=== PATIENT | female | born 1995 | race Caucasian/White ===

== ENCOUNTER 2019-01-19 18:36 | Emergency (ER) | payer OTHER, MEDICAID ==
[~2019-01-19] VITALS: Ht 167.6 cm; Wt 99.8 kg
[~2019-01-19 18:36] MED LIST: ALBUTEROL SULF8.5 GM IH; AZITHROMYCIN 2250 MG PO; BACTROBAN22 GM TP; CLARITHROMYCIN250 M2 PO; FLEXERIL; FLEXERIL PO; HYDROCODONE-AP1 EAC6 PO; IBUPROFEN 800800 M1 PO; KEFLEX500 MG PO; LIDOCREAM5 GM TP; MELATONIN2.5 MG PO; NAUSEA MED; ONDANSETRON HCL4 M2 PO; PRENA1 CHEW TABL1 MG PO; VISTARIL 25 MG25 M1 PO
[2019-01-19 20:07] LABS: URINE BILIRUBIN NEGATIVE (Negative); URINE BLOOD 3+ (Negative); URINE CLARITY CLEAR; URINE COLOR YELLOW; URINE GLUCOSE-RANDOM NEGATIVE (Negative); URINE KETONES NEGATIVE (Negative); URINE LEUKOCYTES-REFLEX NEGATIVE (Negative); URINE NITRITE-REFLEX NEGATIVE (Negative); URINE PROTEIN NEGATIVE (Negative); URINE UROBILINOGEN 0.2 E.U./dl (0.2-1.0)
[2019-01-19 20:09] LABS: ABSOLUTE BASOPHILS 0.1 thou/uL (0.0-0.2); ABSOLUTE EOSINOPHILS 0.4 thou/uL (0.0-0.7); ABSOLUTE LYMPHOCYTES 2.9 thou/uL (0.8-5.3); ABSOLUTE MONOCYTES 0.5 thou/uL (0.0-1.2); ABSOLUTE NEUTROPHILS 4.9 thou/uL (1.6-8.1); BASOPHILS 0.6 %; EOSINOPHILS 4.9 %; HEMATOCRIT 42.5 % (37.0-47.0); LYMPHOCYTES 32.7 %; MCH 27.6 pg (26.0-34.0); MCHC 32.9 g/dL (28.0-37.0); MCV 83.7 fL (80.0-100.0); MONOCYTES 5.8 %; MPV 7.6 fl. (7.2-11.1); NUCLEATED RBCS 0 /100WBC; PLATELET COUNT* 279 thou/uL (150-400); RBC 5.07 mil/uL (4.20-5.00); WBC 8.8 thou/uL (4.0-11.0)
[2019-01-19] MEDS ORDERED: ZOFRAN ODT4 MG PO (20:10)
[2019-01-19 20:15] LABS: CALCIUM 9.6 mg/dL (8.5-10.1); CREATININE 0.7 mg/dL (0.6-1.3); POTASSIUM 3.9 mmol/L (3.5-5.1)
[2019-01-19 20:20] LABS: ALBUMIN 4.1 g/dL (3.4-5.0); TOTAL BILIRUBIN 0.2 mg/dL (<0.1-1.0); TOTAL PROTEIN 8.6 g/dL (6.4-8.2)
[2019-01-19 20:22] LABS: MUCUS None Seen strn/LPF (None Seen); SQUAMOUS >10 Many /LPF (0-3)
[2019-01-19 20:23] LABS: BACTERIA-REFLEX 1-9 Few /HPF (None Seen); CASTS None Seen /LPF (None Seen); URINE RBC 3-10 Few /HPF (0-2)
[2019-01-19 20:24] LABS: CRYSTALS None Seen /LPF (None Seen); URINE WBC-REFLEX None Seen /HPF (0-5)
[2019-01-19] MEDS ORDERED: BUTALB-APAP-CA1 EACH PO (20:38)
[2019-01-19 20:44] VITALS: BP 106/52
== END 2019-01-19 20:49 | disposition home or self-care (01) ==
LOC: M.ERS 18:36
PROVIDERS: Physician Assistant
DX: G43.901 Migraine, unspecified, not intractable, with status migrainosus (principal); R11.2 Nausea with vomiting, unspecified; J45.909 Unspecified asthma, uncomplicated; Z79.899 Other long term (current) drug therapy; Z91.040 Latex allergy status; Z88.0 Allergy status to penicillin; Z88.6 Allergy status to analgesic agent; Z88.1 Allergy status to other antibiotic agents; Z88.8 Allergy status to other drugs, medicaments and biological substances

== ENCOUNTER 2019-09-02 04:10 | Emergency (ER) | payer OTHER, MEDICAID ==
[~2019-09-02] VITALS: Ht 165.1 cm; Wt 97.5 kg
[~2019-09-02 04:10] MED LIST changes: +BUTALB-APAP-CA1 EACH PO; +ZOFRAN ODT4 MG PO
[2019-09-02 04:23] VITALS: BP 111/78
[2019-09-02] MEDS ORDERED: ZOFRAN ODT4 MG DISSOLVE (04:52)
[2019-09-02] MEDS ORDERED: ZPAK PO (04:52)
[2019-09-02 04:53] LABS: INFLUENZA A ANTIGEN Negative (Negative); INFLUENZA B ANTIGEN Negative (Negative)
== END 2019-09-02 05:01 | disposition home or self-care (01) ==
LOC: M.ERS 04:10
PROVIDERS: Emergency Medicine Emergency Medical Services
DX: J02.0 Streptococcal pharyngitis (principal); R11.2 Nausea with vomiting, unspecified; J45.909 Unspecified asthma, uncomplicated; G43.909 Migraine, unspecified, not intractable, without status migrainosus; Z88.0 Allergy status to penicillin; Z88.1 Allergy status to other antibiotic agents; Z88.5 Allergy status to narcotic agent; Z91.040 Latex allergy status

== ENCOUNTER 2019-11-26 15:54 | Emergency (ER) | payer OTHER, MEDICAID ==
[~2019-11-26] VITALS: Ht 167.6 cm; Wt 78.5 kg
[~2019-11-26 15:54] MED LIST changes: +ZOFRAN ODT4 MG DISSOLVE; +ZPAK PO
[2019-11-26] MEDS ORDERED: LIDOCAINE VISC100 ML SW&SWALLOW (16:30)
[2019-11-26] MEDS ORDERED: ONDANSETRON HCL4 M2 PO (16:30)
[2019-11-26] MEDS ORDERED: DIFLUCAN150 M1 PO (16:30)
[2019-11-26] MEDS ORDERED: ZPAK PO (16:30)
[2019-11-26 16:40] VITALS: BP 111/63
== END 2019-11-26 16:40 | disposition home or self-care (01) ==
LOC: M.ERS 15:54
DX: J02.0 Streptococcal pharyngitis (principal); J45.909 Unspecified asthma, uncomplicated; G43.909 Migraine, unspecified, not intractable, without status migrainosus; Z88.1 Allergy status to other antibiotic agents; Z88.0 Allergy status to penicillin; Z91.040 Latex allergy status; Z88.6 Allergy status to analgesic agent; Z88.8 Allergy status to other drugs, medicaments and biological substances

== ENCOUNTER 2020-11-22 04:23 | Emergency (ER) | payer OTHER, MEDICAID ==
[~2020-11-22] VITALS: Ht 167.6 cm; Wt 86.2 kg
[~2020-11-22 04:23] MED LIST changes: +DIFLUCAN150 M1 PO; +LIDOCAINE VISC100 ML SW&SWALLOW
[2020-11-22] MEDS ORDERED: BACTRIM DS TAB1 EAC1 PO (05:04)
[2020-11-22 05:50] VITALS: BP 125/60
== END 2020-11-22 05:50 | disposition home or self-care (01) ==
LOC: M.ERS 04:23
DX: L02.214 Cutaneous abscess of groin (principal); J45.909 Unspecified asthma, uncomplicated; G43.909 Migraine, unspecified, not intractable, without status migrainosus; Z88.1 Allergy status to other antibiotic agents; Z91.040 Latex allergy status; Z88.0 Allergy status to penicillin; Z88.6 Allergy status to analgesic agent